=== PATIENT | female | born 1955 | race Caucasian/White ===

== ENCOUNTER → 2018-09-18 | Outpatient (CLI) | payer OTHER | END | disposition home or self-care (01) | LOC: NUCLEAR 11:00 | DX: M81.0 Age-related osteoporosis without current pathological fracture (principal) ==

== ENCOUNTER 2020-05-29 23:20 | Emergency (ER) | payer OTHER ==
[~2020-05-29] VITALS: Ht 162.6 cm; Wt 62.6 kg
[2020-05-30] MEDS ORDERED: SKELAXIN800 MG PO (01:46)
[2020-05-30] MEDS ORDERED: NAPROXEN375 MG PO (01:46)
[2020-05-30] MEDS ORDERED: PEPCID20 MG PO (01:46)
== END 2020-05-30 02:32 | disposition home or self-care (01) ==
LOC: ER
DX: S00.83XA Contusion of other part of head, initial encounter (principal); V49.9XXA Car occupant (driver) (passenger) injured in unspecified traffic accident, initial encounter; Y93.89 Activity, other specified; Y92.488 Other paved roadways as the place of occurrence of the external cause; Y99.8 Other external cause status

== ENCOUNTER 2021-06-28 13:05 | Outpatient (CLI) | payer OTHER ==
[~2021-06-28 13:05] MED LIST: NAPROXEN375 MG PO; PEPCID20 MG PO; SKELAXIN800 MG PO
== END 2021-06-28 13:22 | disposition home or self-care (01) ==
LOC: NUCLEAR 13:05
PROVIDERS: ATTEND Specialist
DX: M81.0 Age-related osteoporosis without current pathological fracture (principal)

== ENCOUNTER → 2023-07-04 13:31 | Outpatient (CLI) | payer OTHER | END | disposition home or self-care (01) | LOC: NUCLEAR 13:00 | PROVIDERS: ATTEND Internal Medicine Rheumatology | DX: M81.0 Age-related osteoporosis without current pathological fracture (principal) ==